=== PATIENT | female | born 1995 | race Caucasian/White ===

== ENCOUNTER 2019-02-22 20:26 | Observation (INO) ==
[2019-02-22 22:13] LABS: Candida DNA Not Detected (Not Detect); Gardnerella DNA Not Detected (Not Detect); Trichomonas DNA Not Detected (Not Detect)
== END 2019-02-22 21:45 | disposition home or self-care (01) ==
LOC: 1NENULAB
PROVIDERS: ADMIT Registered Nurse; ATTEND Registered Nurse

== ENCOUNTER 2019-03-08 08:00 | Inpatient (IN) ==
[2019-03-08] MEDS ORDERED: Naloxone 0.4 MG/ML INJ IVP PRN (14:16)
[2019-03-08] MEDS ORDERED: *HR* Nalbuphine 10 MG/ML AMPUL IVP PRN (14:16)
[2019-03-08] MEDS ORDERED: Famotidine 20 MG/2 ML VIAL IVP PRN (14:16)
[2019-03-08] MEDS ORDERED: Metoclopramide 10 MG/2 ML VIAL IVP PRN (14:16)
[2019-03-08] MEDS ORDERED: Lidocaine 1% 20 ML MDV ID PRN (14:16)
[2019-03-08] MEDS ORDERED: Ondansetron 4 MG/2 ML VIAL IVP PRN (14:16)
[2019-03-08 15:34] LABS: Basophils % 0.2 %; Eosinophils % 0.4 %; Hematocrit 30.8 % (35.3-44.9); Hemoglobin 10.3 g/dL (11.5-15.4); Immature Granulocytes % 0.7 % (0-4); Lymphocytes # 2.2 K/mcL (0.6-4.6); Lymphocytes % 25.4 %; Mean Corpuscular HGB Conc 33.4 g/dL (31.6-35.5); Mean Corpuscular Volume 86.8 fL (83.0-100.0); Mean Platelet Volume 10.8 fL (9.4-12.4); Monocytes # 0.5 K/mcL (0.0-1.3); Neutrophils # 5.7 K/mcL (1.6-8.9); Platelet Count 214 K/mcL (140-400); Red Blood Count 3.55 M/mcL (3.82-4.97); Segmented Neutrophils % 67.3 %; White Blood Count 8.5 K/mcL (4.3-11.1)
[2019-03-08] MEDS ORDERED: miSOPROStoL 25 MCG TABLET PO PRN (15:42)
[2019-03-08] MEDS: Ringers Solution, Lactated 1,000 ML IVC SCH (16:00)
[2019-03-08 16:09] LABS: Amphetamine Screen,Urine Negative ng/mL (Cutoff=1000); Barbiturate Screen,Urine Negative ng/mL (Cutoff=200); Benzodiazepines Screen,Urine Negative ng/mL (Cutoff=200); Cannabinoid Screen,Urine Negative ng/mL (Cutoff = 50); Cocaine Screen,Urine Negative ng/mL (Cutoff= 300); Opiate Screen,Urine Negative ng/mL (Cutoff=300); Phencyclidine Screen,Urine Negative ng/mL (Cutoff=25)
[2019-03-08] MEDS ORDERED: EPHEDrine 50 MG/ML VIAL IVP PRN (17:24)
[2019-03-08] MEDS ORDERED: Epidural Premix (fent/bupiv) 110 ML EP SCH (17:30)
[2019-03-08] MEDS ORDERED: *HR* FentaNYL (PF) 100 MCG/2 ML VIAL ONE (22:41)
[2019-03-08] MEDS ORDERED: Ropivacaine/PF 0.2% 20 ML VIAL ONE (22:41)
[2019-03-09] MEDS ORDERED: Oxytocin 20 units/ LR 1000 mL 20 UNIT/1,000 ML BAG IVC ONE (02:15)
[2019-03-09] MEDS ORDERED: Benzocaine/Menthol 56 GM AEROSOL SPRAY TP PRN (02:57)
[2019-03-09] MEDS ORDERED: Ibuprofen 600 MG TABLET PO PRN (02:57)
[2019-03-09] MEDS ORDERED: Lanolin 7 G OINT...G. TP PRN (02:57)
[2019-03-09 04:34] LABS: Basophils % 0.1 %; Hematocrit 32.8 % (35.3-44.9); Hemoglobin 10.7 g/dL (11.5-15.4); Immature Granulocytes % 0.5 % (0-4); Lymphocytes # 1.7 K/mcL (0.6-4.6); Mean Corpuscular HGB Conc 32.6 g/dL (31.6-35.5); Mean Corpuscular Hemoglobin 29.5 pg (28.0-33.3); Mean Corpuscular Volume 90.4 fL (83.0-100.0); Mean Platelet Volume 10.5 fL (9.4-12.4); Monocytes # 0.6 K/mcL (0.0-1.3); Monocytes % 4.3 %; Neutrophils # 11.7 K/mcL (1.6-8.9); Platelet Count 183 K/mcL (140-400); Red Blood Count 3.63 M/mcL (3.82-4.97); Red Cell Distribution Width 12.8 % (11.5-14.5); Segmented Neutrophils % 83.1 %
[2019-03-09 04:38] LABS: White Blood Count 14.1 K/mcL (4.3-11.1)
[2019-03-09] MEDS: Prenatal Vit/FA 1 EACH TABLET PO SCH (09:05)
[2019-03-09] MEDS: Acetaminophen 325 MG TABLET PO PRN ×3 (09:46→20:12)
[2019-03-09] MEDS: Ringers Solution, Lactated 1,000 ML IVC SCH (15:13)
[2019-03-09] MEDS: Oxytocin 20 units/ LR 1000 mL 20 UNIT/1,000 ML BAG IVC SCH (15:14)
[2019-03-10 09:42] VITALS: BP 112/68
[2019-03-10] MEDS: Prenatal Vit/FA 1 EACH TABLET PO SCH (10:03)
== END 2019-03-10 13:25 | disposition home or self-care (01) | DRG 560 ==
LOC: 1NENULAB 14:00 → 1NENUOBS 03-09 04:05
PROVIDERS: ADMIT Obstetrics & Gynecology; ATTEND Obstetrics & Gynecology

== ENCOUNTER → 2021-05-29 20:03 | Observation (INO) ==
[2021-05-29 20:45] LABS: Amorphous Sediment,Urine Few per hpf (None-Few); Bacteria,Urine Few per hpf (None-Few); Bilirubin,Urine Negative (Negative); Blood,Urine Negative (Negative); Clarity,Urine Clear (Clear); Color,Urine Yellow (Yellow); Glucose,Urine (UA) Normal (Normal); Ketones,Urine 10 mg/dL (Negative); Leukocyte Esterase,Urine Trace (Negative); Mucus,Urine Few per lpf (None-Few); Nitrite,Urine Negative (Negative); PH,Urine 6.5 pH Units (5.0-8.0); Protein,Urine Trace mg/dL (Neg-Trace); Specific Gravity,Urine 1.025 (1.010-1.025); Squamous Epithelial Cell,Urine Few per hpf (None-Few); WBC,Urine 0-3 per hpf (0-3)
== END | disposition home or self-care (01) ==
LOC: 1NENULAB
PROVIDERS: ADMIT Registered Nurse; ATTEND Registered Nurse

== ENCOUNTER 2021-07-11 09:35 | Inpatient (IN) ==
[2021-07-11] MEDS ORDERED: Naloxone 0.4 MG/ML INJ IVP PRN ×2 (10:32→13:25)
[2021-07-11] MEDS ORDERED: Metoclopramide 10 MG/2 ML VIAL IVP PRN (10:58)
[2021-07-11] MEDS ORDERED: Azithromycin 500 MG in 0.9 % Sodium Chloride 250 ML IVPB PRN (10:58)
[2021-07-11] MEDS ORDERED: Ondansetron 4 MG/2 ML VIAL IVP PRN ×2 (10:58→13:25)
[2021-07-11] MEDS ORDERED: miSOPROStoL 25 MCG TABLET VG PRN (10:58)
[2021-07-11] MEDS ORDERED: Lidocaine 1% 20 ML MDV INFILT PRN (10:58)
[2021-07-11] MEDS ORDERED: Famotidine 20 MG/2 ML VIAL IVP PRN (10:58)
[2021-07-11] MEDS ORDERED: *HR* Nalbuphine 10 MG/ML AMPUL IV PRN (10:58)
[2021-07-11] MEDS ORDERED: Ringers Solution, Lactated 1,000 ML IVC SCH (11:00)
[2021-07-11 11:19] LABS: Basophils % 0.4 %; Eosinophils % 0.5 %; Hematocrit 35.4 % (35.3-44.9); Hemoglobin 11.7 g/dL (11.5-15.4); Immature Granulocytes % 0.6 % (0-4); Lymphocytes # 1.9 K/mcL (0.6-4.6); Mean Corpuscular HGB Conc 33.1 g/dL (31.6-35.5); Mean Corpuscular Hemoglobin 29.6 pg (28.0-33.3); Mean Corpuscular Volume 89.6 fL (83.0-100.0); Mean Platelet Volume 10.1 fL (9.4-12.4); Monocytes # 0.5 K/mcL (0.0-1.3); Monocytes % 5.6 %; Neutrophils # 5.7 K/mcL (1.6-8.9); Platelet Count 242 K/mcL (140-400); Red Blood Count 3.95 M/mcL (3.82-4.97); Red Cell Distribution Width 12.7 % (11.5-14.5); Segmented Neutrophils % 69.9 %; White Blood Count 8.2 K/mcL (4.3-11.1)
[2021-07-11 11:58] LABS: Influenza A PCR Negative (Negative); Influenza B PCR Negative (Negative); Resp. Syncytial Virus PCR Negative (Negative); SARS-CoV-2 by PCR (In House) Negative (Negative)
[2021-07-11] MEDS ORDERED: *HR* FentaNYL (PF) 100 MCG/2 ML VIAL EP ONE (13:25)
[2021-07-11] MEDS ORDERED: EPHEDrine 50 MG/ML VIAL IVP PRN (13:25)
[2021-07-11] MEDS ORDERED: Ropivacaine/PF 0.2% 20 ML VIAL EP ONE (13:25)
[2021-07-11] MEDS ORDERED: Epidural Premix (fent/bupiv) 110 ML EP SCH (13:30)
[2021-07-11 15:36] LABS: Amphetamine Screen,Urine Negative ng/mL (Cutoff=1000); Barbiturate Screen,Urine Negative ng/mL (Cutoff=200); Benzodiazepines Screen,Urine Negative ng/mL (Cutoff=200); Cannabinoid Screen,Urine Negative ng/mL (Cutoff = 50); Cocaine Screen,Urine Negative ng/mL (Cutoff= 300); Opiate Screen,Urine Negative ng/mL (Cutoff=300); Phencyclidine Screen,Urine Negative ng/mL (Cutoff=25)
[2021-07-11] MEDS ORDERED: Oxytocin 30 UNIT/503 ML BAG IVC SCH ×2 (18:15→22:32)
[2021-07-11] MEDS ORDERED: Ondansetron ODT 4 MG TAB.RAPDIS SL PRN (22:32)
[2021-07-11] MEDS ORDERED: Benzocaine/Menthol 56 GM AEROSOL SPRAY TP PRN (22:32)
[2021-07-11] MEDS ORDERED: Lanolin 7 G OINT...G. TP PRN (22:32)
[2021-07-11 23:46] VITALS: O2SAT 97
[2021-07-12] MEDS: Ibuprofen 600 MG TABLET PO SCH ×4 (00:19→20:01)
[2021-07-12] MEDS: Acetaminophen 325 MG TABLET PO SCH ×4 (00:20→20:02)
[2021-07-12 04:40] VITALS: TEMP 97.9
[2021-07-12 04:54] LABS: Basophils % 0.3 %; Eosinophils % 0.4 %; Hematocrit 31.9 % (35.3-44.9); Hemoglobin 10.7 g/dL (11.5-15.4); Immature Granulocytes % 0.7 % (0-4); Lymphocytes # 2.1 K/mcL (0.6-4.6); Lymphocytes % 18.8 %; Mean Corpuscular HGB Conc 33.5 g/dL (31.6-35.5); Mean Corpuscular Hemoglobin 29.6 pg (28.0-33.3); Mean Corpuscular Volume 88.1 fL (83.0-100.0); Mean Platelet Volume 10.5 fL (9.4-12.4); Monocytes # 0.7 K/mcL (0.0-1.3); Monocytes % 5.9 %; Neutrophils # 8.2 K/mcL (1.6-8.9); Platelet Count 224 K/mcL (140-400); Red Blood Count 3.62 M/mcL (3.82-4.97); Red Cell Distribution Width 12.7 % (11.5-14.5); Segmented Neutrophils % 73.9 %; White Blood Count 11.1 K/mcL (4.3-11.1)
[2021-07-12] MEDS ORDERED: Prenatal Vit/FA 1 EACH TABLET PO SCH (09:00)
[2021-07-12 20:23] VITALS: BP 117/74; PULSE 76
== END 2021-07-12 20:30 | disposition home or self-care (01) | DRG 560 ==
LOC: 1NENULAB 09:35 → 1NENUOBS 22:03
PROVIDERS: ADMIT Obstetrics & Gynecology; ATTEND Obstetrics & Gynecology